=== PATIENT | male | born 1995 | race Hispanic/Latino ===

== ENCOUNTER 2025-09-10 15:33 | Observation (INO) | payer BC ==
[~2025-09-10] VITALS: Ht 167.6 cm; Wt 106.1 kg
--- NOTE | 2025-09-10 16:03 | ERN ---
General Chief Complaint: Abdominal Pain Stated Complaint: RLQ PAIN Time Seen by MD: 15:40 History of Present Illness Initial Comments Patient is a 30-year-old male presenting with right lower quadrant abdominal pain that began yesterday evening. Pain was initially 8/10, now 7/10, described as sharp and localized to right lower quadrant. He reports associated nausea but no vomiting, diarrhea or urinary symptoms. No prior similar episodes. Allergies: Coded Allergies: No Known Drug Allergies (Unverified Allergy, Unknown, 09/10/25) Past Medical History Past Medical History: Diabetes-Type II Past Surgical History: None ROS Dictation REVIEW OF SYSTEMS CONSTITUTIONAL: Reports mild fever: No unintentional weight loss reported. NEUROLOGICAL: Denies headache, vertigo/spinning sensation, gait abnormalities, or tremors. ENT: No hearing loss, otalgia, otorrhea, rhinitis, rhinorrhea, hoarseness, or sore throat. CARDIOVASCULAR: Denies any exertional angina, dyspnea on exertion, orthopnea, paroxysmal nocturnal dyspnea, palpitations, life-threatening arrhythmias, claudication. PULMONARY: Denies chest pain, Denies any shortness of breath, GASTROINTESTINAL: Positive for right lower quadrant abdominal pain and nausea: Denies vomiting, diarrhea, constipation, melena or hematochezia. GENITOURINARY: Denies frequency, urgency, nocturia, hematuria or incontinence. Physical Exam Physical Exam Dictation PHYSICAL EXAM GENERAL APPEARANCE: The patient is awake, alert, and oriented, in no acute cardiopulmonary distress. NEUROLOGICAL: Alert and oriented x3, moving all extremities spontaneously. No focal deficit. HEENT: Face is symmetric. Pupils are equal and reactive. Extraocular movements are intact. CHEST: Normal chest expansion. LUNGS: Absence of any rales, rhonchi or any wheezing. CARDIOVASCULAR: Regular. S1 and S2 normal. No appreciable rubs, murmurs or gallops. ABDOMEN: Flat, nondistended, mild tenderness in RLQ. Rebound tenderness positive. Positive Psoas sign. Bowel sounds present. EXTREMITIES: No cyanosis, clubbing or edema. Results Laboratory and Microbiology Lab and Micro Result Laboratory Tests Test 09/10/25 16:04 White Blood Count 15.5 K/uL (4.8-10.8) H Red Blood Count 6.01 MIL/uL (4.50-6.20) Hemoglobin 17.8 g/dL (14.0-18.0) Hematocrit 51.7 % (42-54) Mean Corpuscular Volume 86.0 fL (79-99) Mean Corpuscular Hemoglobin 29.6 pg (27.0-33.0) Mean Corpuscular Hemoglobin Concent 34.4 g/dL (32.0-36.0) Red Cell Distribution Width 12.4 % (11.0-15.5) Platelet Count 255 K/uL (130-400) Mean Platelet Volume 10.7 fL (7.5-10.5) H Nucleated Red Blood Cells 0.0 % (0.0-0.19) Sodium Level 133 mmol/L (136-145) L Potassium Level 3.5 mmol/L (3.5-5.1) Chloride Level 97 mmol/L (101-111) L Carbon Dioxide Level 27 mmol/L (21-32) Blood Urea Nitrogen 14 mg/dL (7-18) Creatinine 0.8 mg/dL (0.5-1.3) Glomerular Filtration Rate Calc 121 mL/min (>90) Random Glucose 296 mg/dL (70-105) H Total Calcium 8.8 mg/dL (8.5-10.1) Labs Reviewed?: Yes EKG/XRAY/US/CT/MRI CT Scan Comment [address] [id number] [place] [address] IMAGING REPORT Signed PATIENT: JEAN-PAUL ROJAS MR#: [id number] : 1995 SEX: M AGE: 30 LOCATION: ED ORDER STATUS: REG ER REPORT#: [id number] SERVICE [id number] REASON: R/O APPENDICITIS ORDERING PHYSICIAN: ELLY GARCIA MD PROCEDURE: ABD PEL WO - CT ABDOMEN/PELVIS W/O CONTRAST EXAM: CT Abdomen and Pelvis Without IV contrast CLINICAL HISTORY: R/O APPENDICITIS TECHNIQUE: Axial computed tomography images of the abdomen and pelvis without intravenous contrast. CONTRAST: No IV contrast. COMPARISON: None provided. FINDINGS: LUNG BASES: The lung bases appear clear. No pleural effusions are seen. LIVER: Fatty liver. GALLBLADDER AND BILE DUCTS: The gallbladder appears within normal limits. No radioopaque gallstones are seen. No biliary ductal dilatation is evident. PANCREAS: Unremarkable. SPLEEN: Unremarkable. ADRENAL GLANDS: Unremarkable. KIDNEYS, URETERS, AND BLADDER: The kidneys appear within normal limits. There is no hydronephrosis or hydroureter. No urinary calculi are seen. STOMACH AND BOWEL: Unremarkable appearance of the stomach and bowel. No evidence of bowel obstruction. No evidence suggesting enteritis or colitis. APPENDIX: Appendix measures 7 mm in diameter with surrounding inflammatory changes. PERITONEUM: No free fluid. No free air. LYMPH NODES: No lymphadenopathy is evident. REPRODUCTIVE: Unremarkable as visualized. VASCULATURE: No evidence of abdominal aortic aneurysm. BONES: No aggressive appearing osseous lesion. No acute osseous pathology evident. MISCELLANEOUS: Small fat-containing bilateral inguinal hernias. IMPRESSION: 1. Acute appendicitis. 2. Fatty liver. 3. Small bilateral inguinal hernias. /[place] DICTATED BY: CARL BETHEA MD DATE: 09/10/251820 ELECTRONICALLY SIGNED BY: CARL BETHEA MD DATE: 09/10/251820 [facility] This is a 30-year-old male presenting with acute right lower quadrant abdominal pain since yesterday evening, associated with nausea, mild fever temperature 99.1 and tachycardia heart rate 190. Laboratory evaluation showed WBC 15.5 Leukocytosis. CMP within normal limits with high blood glucose level of 296. Imaging: CT abdomen pelvis demonstrated, Acute appendicitis and small bilateral inguinal hernias. Appendix measures 7 mm in diameter with surrounding inflammatory changes. Vitals: Mild tachycardia: Otherwise stable hemodynamics Findings are consistent with acute appendicitis. Differential diagnosis such as mesenteric adenitis, gastroenteritis and renal colic are less likely given CT confirmation and localize signs like psoas sign positive and has rebound tenderness with leukocytosis. Patient was managed with IV fluids and Zosyn IV. General surgery (Dr Drake) was consulted and will be admitted as per the recommendation. Instructions: * Patient kept NPO * IV fuids and IV antibiotics has been initiated * Patient counseled on findings, need for surgical evaluation * IV analgesics and antiemetics as required Disposition: Admit to General surgery for further management. Condition is stable. Patient will be admitted under the care of hospitalist group report given. ED Course Orders Procedure Category Date Status Time Cbc Without LAB 09/10/25 Complete Differential 15:50 Basic Metabolic Panel LAB 09/10/25 Complete 15:50 Urinalysis Profile LAB 09/10/25 Logged 15:50 Ct Abdomen/Pelvis W/O CT 09/10/25 Resulted Contrast 16:37 Zosyn 3.375gm+Ns 50ml PHA 09/10/25 In Process (Zosyn 3.375gm+Ns 18:00 General Surgery CONPHYSVC 09/10/25 Transmitted Consult 17:33 0.9%Nacl 1000ml (Ns PHA 09/10/25 Logged 1000ml) 18:30 Current Medications Medications (Trade) Dose Ordered Sig/Nyasia Route PRN Reason Start Time Stop Time Status Last Admin Dose Admin Piperacillin Sod/ Tazobactam Sod (Zosyn 3.375gm+NS 50ml) 3.375 gm ONCE IV 09/10/25 18:00 09/20/25 17:59 09/10/25 18:04 Sodium Chloride 1,000 ml @ 0 mls/hr ONCE ONCE IV 09/10/25 18:30 09/10/25 18:31 UNV Vital Signs Date Time Temp Pulse Resp B/P (MAP) Pulse Ox O2 Delivery O2 Flow Rate FiO2 09/10/25 18:20 99.1 117 19 139/87 99 Room Air* 0 21 09/10/25 16:36 98.1 124 19 121/85 96 Room Air* 0 21 09/10/25 15:36 99.1 130 20 142/78 98 Room Air DX & DISP Disposition: Inpatient Decision to Admit Time: 18:35 Departure Impression: Primary Impression: Acute appendicitis Condition: Stable Additional Instructions: Instructions: Patient kept NPO IV fuids and IV antibiotics has been initiated Patient counseled on findings, need for surgical evaluation IV analgesics and antiemetics as required ELLY GARCIA MD Sep 10, 2025 16:03 NERIS VELIZ MD Sep 10, 2025 18:14
[2025-09-10 16:14] LABS: NUCLEATED RED BLOOD CELLS 0.0 % (0.0-0.19); PLATELET COUNT (AUTO) 255.0 K/uL (130-400); RED BLOOD CELL COUNT(AUTO) 6.01 MIL/uL (4.50-6.20); RED CELL DISTRIBUTION WIDTH 12.4 % (11.0-15.5); WHITE BLOOD COUNT (AUTO) 15.5 K/uL (4.8-10.8)
[2025-09-10 16:23] LABS: CREATININE 0.8 mg/dL (0.5-1.3); GLOMERULAR FILTR. RATE CALC 121.0 mL/min (>90); GLUCOSE,RANDOM 296.0 mg/dL (70-105); SODIUM SERUM 133.0 mmol/L (136-145); UREA NITROGEN, BLOOD 14.0 mg/dL (7-18)
--- NOTE | 2025-09-10 17:22 | HMCIMG ---
EXAM: CT Abdomen and Pelvis Without IV contrast CLINICAL HISTORY: R/O APPENDICITIS TECHNIQUE: Axial computed tomography images of the abdomen and pelvis without intravenous contrast. CONTRAST: No IV contrast. COMPARISON: None provided. FINDINGS: LUNG BASES: The lung bases appear clear. No pleural effusions are seen. LIVER: Fatty liver. GALLBLADDER AND BILE DUCTS: The gallbladder appears within normal limits. No radioopaque gallstones are seen. No biliary ductal dilatation is evident. PANCREAS: Unremarkable. SPLEEN: Unremarkable. ADRENAL GLANDS: Unremarkable. KIDNEYS, URETERS, AND BLADDER: The kidneys appear within normal limits. There is no hydronephrosis or hydroureter. No urinary calculi are seen. STOMACH AND BOWEL: Unremarkable appearance of the stomach and bowel. No evidence of bowel obstruction. No evidence suggesting enteritis or colitis. APPENDIX: Appendix measures 7 mm in diameter with surrounding inflammatory changes. PERITONEUM: No free fluid. No free air. LYMPH NODES: No lymphadenopathy is evident. REPRODUCTIVE: Unremarkable as visualized. VASCULATURE: No evidence of abdominal aortic aneurysm. BONES: No aggressive appearing osseous lesion. No acute osseous pathology evident. MISCELLANEOUS: Small fat-containing bilateral inguinal hernias. IMPRESSION: 1. Acute appendicitis. 2. Fatty liver. 3. Small bilateral inguinal hernias. /[place]
[2025-09-10] MEDS: ZOSYN 3.375GM +NS 50ML IV SCH (18:04)
[2025-09-10] MEDS: 0.9%NACL 1000ML 1,000 ML IV SCH (18:45)
[2025-09-10] MEDS ORDERED: 0.9%NACL 1000ML 1,000 ML IV SCH (19:00)
[2025-09-10] MEDS ORDERED: PoTASSium chloRIDE 20MEQ ER 20 MEQ ERTAB PO PRN (19:00)
[2025-09-10] MEDS ORDERED: GLUCAGON 1MG KIT 1 MG ML IM PRN (19:00)
[2025-09-10] MEDS ORDERED: MAGNESIUM 2GM PREMIX 50ML 50 ML IV PRN (19:00)
[2025-09-10] MEDS ORDERED: DEXTROSE 50%-WATER 50 ML DISP.SYRIN IV PRN (19:00)
[2025-09-10] MEDS ORDERED: PoTASSium chl 10% ELIXIR 20MEQ 20 MEQ/15 ML UDCUP PO PRN (19:00)
--- NOTE | 2025-09-10 19:07 | HP ---
[facility] HISTORY AND PHYSICAL Date of Service: Sep 10, 2025 Time of Service: 19:07 PCP: Placido Rojas HISTORY OF PRESENT ILLNESS: This is a 30-year-old male who states he is newly diagnosed with Diabetes and has been on Metformin who presents to the ED for complaints of right lower quadrant pain .Patient reports pain inially started lastnight around 11 :00 pm and initially it was all over his abdomen and today it started to localized around right lower quadrant area associated wih nausea but no vomiting.Patient states this is the first time he has this symptoms. Seen and examined patient in the Er awake,alert and appears uncomfortable 7/10 pain level.Patient denies chest pain,palpitation ,diarrhea and shortness of breath. Latest vital signs temperature 99.1, heart rate 117, blood pressure 139/87 saturation 99% on room air. Labs: WBC 15, hemoglobin 17, hematocrit 51 platelet count 255. Sodium 133, potassium 3.5, chloride 97, random glucose 296 the rest of the chemistries normal. CT abdomen and pelvis without contrast result revealed acute appendicitis. Fatty liver, small bilateral inguinal hernia. While in the ER patient received 1 L NS bolus and Zosyn IV. As per ER MD , airport operations specialist surgeon was notified and consulted .We will admit patient for further medical management REVIEW OF SYSTEMS CONSTITUTIONAL: Denies fevers, chills, or night sweats. No unintentional weight loss reported. NEUROLOGICAL: Denies headache, amaurosis fugax, motor weakness, sensory deficit, vertigo/spinning sensation, gait abnormalities, or tremors. ENT: No hearing loss, otalgia, otorrhea, rhinitis, rhinorrhea, hoarseness, or sore throat. CARDIOVASCULAR: Denies any exertional angina, dyspnea on exertion, orthopnea, paroxysmal nocturnal dyspnea, palpitations, life-threatening arrhythmias, cla udication. PULMONARY: Denies any shortness of breath, cough, phlegm/sputum, hemoptysis, pleuritic chest pain. SLEEP: Denies morning headaches, daytime somnolence or napping. Denies difficulty falling asleep, staying asleep, waking from sleep. Denies knowledge of snoring. GASTROINTESTINAL: Complain of abdominal pain and nausea Denies any type of dysphagia to either liquids or solids. Denies vomiting, pyrosis, early satiety, diarrhea, constipation, or changes in stool consistency or caliber. Denies coffee-ground emesis, hematemesis, hematochezia, or melanotic stools. GENITOURINARY: Denies frequency, urgency, nocturia, hematuria or incontinence (Storage/Irritative symptoms.) Low urinary stream, straining to void, urinary intermittency or hesitancy, splitting of the voiding stream, terminal dribbling. ENDOCRINOLOGIC: Denies polyuria, polydipsia, polyphagia or heat/cold into lerances. HEMATOLOGIC: Denies thrombophilia/previous clots, or coagulopathy/bleeding disorders. ONCOLOGIC: Denies personal history of malignancy. DERMATOLOGIC: Denies rashes or pruritus. PSYCHIATRIC: Denies any suicidal or homicidal ideation. Denies hallucinations. PAST MEDICAL HISTORY: [Diabetes ] PAST SURGICAL HISTORY: [ Patient denies] PAST SOCIAL HISTORY: [ Lives with father. Patient denies alcohol tobacco and recreational drug use ] FAMILY HISTORY: [ Noncontributory ] Coded Allergies: No Known Drug Allergies (Unverified Allergy, Unknown, 09/10/25) PHYSICAL EXAM GENERAL APPEARANCE: The patient is awake, alert, and oriented, in no acute cardiopulmonary distress. NEUROLOGICAL: Cranial nerves II-XII grossly intact. Motor is 5/5 in bilateral upper and lower extremities proximal to distal. No sensory deficits. HEENT: Face is symmetric. Pupils are equal and reactive. Extraocular movements are intact. NECK: Supple. No JVD. No thyromegaly. No submental, submandibular, pre- /postauricular, occipital or supraclavicular lymphadenopathy. CHEST: Normal chest expansion. No Telemetry. LUNGS: Absence of any rales, rhonchi or any wheezing. CARDIOVASCULAR: Regular. S1 and S2 normal. No appreciable rubs, murmurs or gallops. ABDOMEN: Tenderness around right lower quadrant area on light palpation Soft and nondistended. There is no voluntary guarding, or rigidity. : Deferred. No Mei. EXTREMITIES: Non-edematous and not cyanotic. No clubbing. Good capillary refill. SKIN: No skin breakdown. Vital Sign (Last 24 Hours) 09/10/25 18:20 Temp 99.1 Pulse 117 Resp 19 B/P (MAP) 139/87 Pulse Ox 99 O2 Delivery Room Air* O2 Flow Rate 0 FiO2 21 LABS: Laboratory: Test 09/10/25 16:04 Range/Units White Blood Count 15.5 H 4.8-10.8 K/uL Red Blood Count 6.01 4.50-6.20 MIL/uL Hemoglobin 17.8 14.0-18.0 g/dL Hematocrit 51.7 42-54 % Mean Corpuscular Volume 86.0 79-99 fL Mean Corpuscular Hemoglobin 29.6 27.0-33.0 pg Mean Corpuscular Hemoglobin Concent 34.4 32.0-36.0 g/dL Red Cell Distribution Width 12.4 11.0-15.5 % Platelet Count 255 130-400 K/uL Mean Platelet Volume 10.7 H 7.5-10.5 fL Nucleated Red Blood Cells 0.0 0.0-0.19 % Sodium Level 133 L 136-145 mmol/L Potassium Level 3.5 3.5-5.1 mmol/L Chloride Level 97 L 101-111 mmol/L Carbon Dioxide Level 27 21-32 mmol/L Blood Urea Nitrogen 14 7-18 mg/dL Creatinine 0.8 0.5-1.3 mg/dL Glomerular Filtration Rate Calc 121 >90 mL/min Random Glucose 296 H 70-105 mg/dL Total Calcium 8.8 8.5-10.1 mg/dL Current Medications Medications (Trade) Dose Ordered Sig/Nyasia Route PRN Reason Start Time Stop Time Status Last Admin Dose Admin Acetaminophen (TYLenol 325MG TAB) 650 mg Q4H PRN PO MILD PAIN (1-3) 09/10/25 19:00 10/10/25 18:59 UNV Acetaminophen (TYLenol 325MG TAB) 650 mg Q6H PRN PO TEMPERATURE GREATER THAN 101.5 09/10/25 19:00 10/10/25 18:59 UNV Dextrose (D50w) 50 ml AD PRN IV HYPOGLYCEMIA PROTOCOL 09/10/25 19:00 10/10/25 18:59 UNV Famotidine (Pepcid 20mg Vial) 20 mg DAILY IV 09/11/25 09:00 10/11/25 08:59 UNV Glucagon (Glucagon 1mg Kit) 1 mg AD PRN IM HYPOGLYCEMIA PROTOCOL 09/10/25 19:00 10/10/25 18:59 UNV Insulin Human Regular (humuLIN R 100 UNIT/ML 3ML) INSULIN SLIDING SCAL... ACHS SQ 09/10/25 21:00 10/10/25 20:59 UNV Magnesium Sulfate 50 ml @ 0 mls/hr PROTOCOL PRN IV OTHER [SEE ORDER COMMENTS] 09/10/25 19:00 10/10/25 18:59 UNV Ondansetron HCl (zoFRAN 4MG INJ) 4 mg Q6H PRN IV NAUSEA/VOMITING 09/10/25 19:00 10/10/25 18:59 UNV Piperacillin Sod/ Tazobactam Sod 50 ml @ 12.5 mls/hr ZOSY8 IV 09/10/25 21:00 09/20/25 20:59 UNV Piperacillin Sod/ Tazobactam Sod (Zosyn 3.375gm+NS 50ml) 3.375 gm ONCE IV 09/10/25 18:00 09/20/25 17:59 09/10/25 18:04 3.375 GM Potassium Chloride 100 ml @ 50 mls/hr AD PRN IV POTASSIUM PROTOCOL 09/10/25 19:00 10/10/25 18:59 UNV Potassium Chloride 100 ml @ 100 mls/hr AD PRN IV POTASSIUM PROTOCOL 09/10/25 19:00 10/10/25 18:59 UNV Potassium Chloride (K-Dur/Klor-Con 20meq) 20 meq AD PRN PO POTASSIUM PROTOCOL 09/10/25 19:00 10/10/25 18:59 UNV Potassium Chloride (KCl 10% Elixir 20meq/15ml) 20 meq AD PRN PO POTASSIUM PROTOCOL 09/10/25 19:00 10/10/25 18:59 UNV Sodium Chloride 1,000 ml @ 0 mls/hr AD IV 09/10/25 19:00 10/10/25 18:59 UNV Sodium Chloride 1,000 ml @ 0 mls/hr ONCE IV 09/10/25 18:30 09/10/25 22:30 09/10/25 18:45 999 MLS/HR DIAGNOSTICS / RADIOLOGY: [ ] ASSESSMENT: Acute appendicitis POA Acute leukocytosis POA Hyponatremia POA Uncontrolled diabetes POA Morbid obesity POA PLAN: We will admit patient in medical surgical We will keep nothing by mouth diet We will continue Zosyn IV Q 8 hours for empiric coverage We will start LR @ 100 ml / hr x2 bags and re evaluate We will start on famotidine 20 mg IV daily for GI prophylaxis We will replace electrolytes as needed per protocol We will start on insulin sliding scale AC & HS with hypoglycemia protocol We will add prn medication for fever,pain,cough , nausea and vomiting General surgery consulted pending to evaluate the patient We will request labs in am Further orders to follow depending on above results Case discussed with attending physician and came up with above treatment and plan of care. ADVANCED CARE PLANNING 1. Which of the following were discussed? Hospice Care - No Therapeutic options - Yes Advance Directives - No Other discussions - 2. Discussed with who? Patient 3. Voluntary nature of this service was explained to the patient? Yes 4. Amount of time spent - __20 min 5. Reviewed by Physician? (if this service was performed by NPP) Yes Patient seen and examined by me. Agree with note by [employer] LINESMAN SEE ADDITIONAL ORDERS PER CHART DISCUSSED WITH NURSING STAFF ROBEL CALVILLOP Sep 10, 2025 19:07
[2025-09-10] MEDS: LACTATED RINGERS 1000ML 1,000 ML IV SCH (19:59)
[2025-09-10] MEDS: ZOSYN 3.375GM+NS 50ML 50 ML IV SCH (20:00)
--- NOTE | 2025-09-10 20:45 | NUR ---
OR TEAM ROUNDS TO PT BEDSIDE
[2025-09-10 21:40] VITALS: BP 130/94; PULSE 115; RESP 18; TEMP 98.1
[2025-09-10 21:45] VITALS: O2SAT 97
[2025-09-11] VITALS (15 sets, daily range): BP systolic 117–158; BP diastolic 74–91; PULSE 100–111; RESP 14–16; TEMP 97–98.3; O2SAT 99
--- NOTE | 2025-09-11 00:42 | NUR ---
OR TEAM NURSES AT BEDSIDE. ALL QUESTIONS ANSWERED. VERBALIZED UNDERSTANDING
--- NOTE | 2025-09-11 00:43 | NUR ---
PATIENT TAKEN TO OR VIA BED. PATIENT AAOX4.
[2025-09-11] MEDS ORDERED: LIDOCAINE PF 100MG/5ML (2%) SYRINGE 5ML ONE (00:54)
[2025-09-11] MEDS ORDERED: SUCCINYLCHOLINE CHLORIDE 20 MG/ML 10 ML VIAL ONE (00:55)
[2025-09-11] MEDS ORDERED: MIDAZOLAM HCL 1 MG/ML 2ML VIAL ONE (00:56)
--- NOTE | 2025-09-11 00:59 | CONS ---
GENERAL SURGERY CONSULTATION NOTE DATE OF CONSULTATION: Sep 11, 2025 TIME OF CONSULTATION: 00:52 CONSULTING SERVICE: Bigg Licea MD REQUESTING PHYSICAIN: [ ] REASON FOR CONSULTATION: [ ] HISTORY OF PRESENT ILLNESS: 30-year-old male started with the abdominal pain about24 hours ago progressively got worse localized right lower quadrant and had nausea. No vomiting. Came into the ER because the pain was getting worse. Found to have acute appendicitis. PAST MEDICAL HISTORY: Diabetes just diagnosed, obesity PAST SURGICAL HISTORY: Done FAMILY HISTORY: [ ] SOCIAL HISTORY: Denies any tobacco alcohol or any illicit drug use Current Medications Medications (Trade) Dose Ordered Sig/Nyasia Route Start Time Stop Time Status Last Admin Dose Admin Famotidine (Pepcid 20mg Vial) 20 mg DAILY IV 09/11/25 09:00 10/11/25 08:59 Insulin Human Regular (humuLIN R 100 UNIT/ML 3ML) INSULIN SLIDING SCAL... ACHS SQ 09/10/25 21:00 10/10/25 20:59 Lactated Ringer's 1,000 ml @ 100 mls/hr Q10H IV 09/10/25 19:30 10/10/25 19:29 09/10/25 19:59 100 MLS/HR Piperacillin Sod/ Tazobactam Sod 50 ml @ 12.5 mls/hr ZOSY8 IV 09/10/25 21:00 09/20/25 20:59 Piperacillin Sod/ Tazobactam Sod (Zosyn 3.375gm+NS 50ml) 3.375 gm ONCE IV 09/10/25 18:00 09/20/25 17:59 09/10/25 18:04 3.375 GM Sodium Chloride 1,000 ml @ 0 mls/hr AD IV 09/10/25 19:00 10/10/25 18:59 Sodium Chloride 1,000 ml @ 0 mls/hr ONCE IV 09/10/25 18:30 09/10/25 22:30 DC 09/10/25 18:45 999 MLS/HR Allergies: Coded Allergies: No Known Drug Allergies (Unverified Allergy, Unknown, 09/10/25) REVIEW OF SYSTEMS: RESP: [No cough, chest pain or SOB.] CVS: [No palpitaions.] GI: [abdominal pain with nausea and vomiting, no diarrhea or constipation.] LIN: [No dysuria or hematuria.] All other systems are reviewed and essentially negative pertinent positives in HPI. PHYSICAL EXAMINATION: GENERAL: [Patient is lying comfortably in bed, not in any obvious distress. HEAD: [Normal with no signs of head trauma. EYES: [Not pale not jaundiced afebrile to touch. NECK: Trachea midline LUNGS: No respiratory distress HEART: [Regular rate and rhythm. ABD: [Bowel sounds present,soft, right lower quadrant tenderness EXT: [ Warm soft, non tender. SKIN: [ No rashes or lesions. NEURO: [ Awake Alert and oriented x3. Vital Signs (last 8hr) Date Time Temp Pulse Resp B/P (MAP) Pulse Ox O2 Delivery O2 Flow Rate FiO2 09/11/25 00:35 98.2 111 16 139/74 98 Room Air 0.0 09/10/25 21:45 97 Room Air* 0 21 09/10/25 21:40 98.1 115 18 130/94 96 Room Air 0.0 09/10/25 21:20 112 18 137/89 97 Room Air* 0 21 09/10/25 19:24 110 18 134/88 96 Room Air* 0 21 09/10/25 18:20 99.1 117 19 139/87 99 Room Air* 0 21 LABORATORY: [ ] Hematology Labs: Test 09/10/25 16:04 Range/Units White Blood Count 15.5 H 4.8-10.8 K/uL Red Blood Count 6.01 4.50-6.20 MIL/uL Hemoglobin 17.8 14.0-18.0 g/dL Hematocrit 51.7 42-54 % Mean Corpuscular Volume 86.0 79-99 fL Mean Corpuscular Hemoglobin 29.6 27.0-33.0 pg Mean Corpuscular Hemoglobin Concent 34.4 32.0-36.0 g/dL Red Cell Distribution Width 12.4 11.0-15.5 % Platelet Count 255 130-400 K/uL Mean Platelet Volume 10.7 H 7.5-10.5 fL Nucleated Red Blood Cells 0.0 0.0-0.19 % Chemistry Labs: Test 09/10/25 21:07 09/10/25 16:04 Range/Units Whole Blood Glucose 248 H 70-110 MG/DL Sodium Level 133 L 136-145 mmol/L Potassium Level 3.5 3.5-5.1 mmol/L Chloride Level 97 L 101-111 mmol/L Carbon Dioxide Level 27 21-32 mmol/L Blood Urea Nitrogen 14 7-18 mg/dL Creatinine 0.8 0.5-1.3 mg/dL Glomerular Filtration Rate Calc 121 >90 mL/min Random Glucose 296 H 70-105 mg/dL Total Calcium 8.8 8.5-10.1 mg/dL DIAGNOSTICS / RADIOLOGY: [Copy/Paste Echos/Imaging Report here] ASSESSMENT: Acute appendicitis PLAN: NPO/IVF/IV ANTIOBIOTICS Schedule for OR We talked about various treatment options including but not limited to surgery. We talked about risks and benefits of surgery, patient verbalized understanding has agreed to proceed laparoscopic appendectomy possible open. MARNIE LATIF MD Sep 11, 2025 00:59
--- NOTE | 2025-09-11 01:53 | OP ---
Operative Note: DATE OF PROCEDURE: 09/11/25 PROCEDURE:Laparoscopic appendectomy. ANESTHESIA: General endotracheal. PREOPERATIVE DIAGNOSIS: Appendicitis. POSTOPERATIVE DIAGNOSIS: Acute appendicitis without perforation. DEVICES LEFT IN PLACE: None. FLUID AND BLOOD PRODUCTS: Per anesthesia report. BLOOD LOSS: Minimal. SPECIMENS REMOVED: Appendix. COMPLICATIONS: None immediate. SURGEON: Marnie Drake MD. DESCRIPTION OF PROCEDURE: The patient was brought to the operating room and placed on the operating table in supine position where general endotracheal anesthesia was achieved. We then proceeded to prep and drape the abdomen in sterile fashion, created a longitudinal incision at the umbilicus, and dissected down through the skin, subcutaneous tissue, and fascia to expose the fascia and incise the fascia at the midline using a #15 blade and entered the abdominal cavity. We introduced a trocar, obtained pneumoperitoneum, and then under direct visualization, we proceeded to place two 5-mm trocars, one in the suprapubic position and the other in the left lower quadrant. We then proceeded to evaluate the pelvis. We evaluated the appendix and it has changes of acute appendicitis. We therefore proceeded to release the appendix from all its adhesions using blunt and sharp dissection with a LigaSure and then proceeded to create a window at the base of the appendix with a [place] dissector and divided the mesoappendix with the LigaSure device. The appendix was in a retrocecal position. Once the base of the appendix was free, we then proceeded to divide the appendix with the [place] vascular load stapler. Placed the appendix into the Endo Catch bag. We inspected the pelvis again and we did not find any signs of an abscess or any other signs of infection. Then, under direct visualization, we proceeded to remove our trocars and there was no bleeding from the abdominal wall. We removed the appendix from the abdomen using the EndoCatch bag and relieved the pneumoperitoneum. We closed the fascia at the umbilicus using a 0-Vicryl stitch in the [id number] fashion and then the skin was closed using a skin stapler. The patient tolerated the procedure well. I was present as well during the entire procedure. All counts were correct x 2 at the end of the procedure. MARNIE DRAKE MD Sep 11, 2025 01:53
[2025-09-11] MEDS ORDERED: PROMETHAZINE HCL 25 MG/ML 1ML AMPULE IM PRN (02:30)
[2025-09-11 04:50] LABS: IMMATURE GRANULOCYTE ABSOLUTE 0.09 K/uL (0-1); NUCLEATED RED BLOOD CELLS 0.0 % (0.0-0.19); PLATELET COUNT (AUTO) 199 K/uL (130-400); RED BLOOD CELL COUNT(AUTO) 5.45 MIL/uL (4.50-6.20); RED CELL DISTRIBUTION WIDTH 12.6 % (11.0-15.5); WHITE BLOOD COUNT (AUTO) 15.4 K/uL (4.8-10.8)
[2025-09-11 05:06] LABS: ASPARTATE AMINOTRANSFERASE 20.0 U/L (10-37); CREATININE 0.8 mg/dL (0.5-1.3); GLOMERULAR FILTR. RATE CALC 121.0 mL/min (>90); GLUCOSE,RANDOM 283.0 mg/dL (70-105); SODIUM SERUM 139.0 mmol/L (136-145); TOTAL PROTEIN, SERUM 7.2 g/dL (6.0-8.3); UREA NITROGEN, BLOOD 17.0 mg/dL (7-18)
[2025-09-11] MEDS: SIMETHICONE 80 MG TAB.CHEW PO SCH (09:38)
[2025-09-11] MEDS: FAMOTIDINE 20MG VIAL IV SCH (09:38)
--- NOTE | 2025-09-11 10:19 | PN ---
POSTOP DAY ONE AFTER LAPAROSCOPIC APPENDECTOMY. PASSING GAS AND HAD A BOWEL MOVEMENT ALREADY. Tolerating his diet. No nausea no vomiting. Pain controlled Incisions are clean dry and intact Assessment and plan Okay to discharge patient after his 2:00 a.m. dose of Zosyn. Discharge home on oral pain medication follow up in the office in 10 days. No lifting anything over 15 or 20 lb for a month. Vitals/Labs Vital Signs Date Time Temp Pulse Resp B/P (MAP) Pulse Ox O2 Delivery O2 Flow Rate FiO2 09/11/25 04:30 98.1 111 16 158/82 96 Nasal Cannula 2.0 09/10/25 21:45 21 Laboratory Tests 09/10/25 16:04 09/11/25 04:20 Medications Current Medications Piperacillin Sod/ Tazobactam Sod 3.375 gm ONCE IV Last administered on 09/10/25at 18:04; Start 09/10/25 at 18:00; Stop 09/11/25 at 06:50; Status DC Sodium Chloride 1,000 ml @ 0 mls/hr ONCE IV Last administered on 09/10/25at 18:45; Start 09/10/25 at 18:30; Stop 09/10/25 at 22:30; Status DC Acetaminophen 650 mg Q6H PRN PO; Start 09/10/25 at 19:00; Stop 10/10/25 at 18:59 Acetaminophen 650 mg Q4H PRN PO; Start 09/10/25 at 19:00; Stop 10/10/25 at 18:59 Ondansetron HCl 4 mg Q6H PRN IV; Start 09/10/25 at 19:00; Stop 10/10/25 at 18:59 Piperacillin Sod/ Tazobactam Sod 50 ml @ 12.5 mls/hr ZOSY8 IV Last administered on 09/11/25at 05:20; Start 09/10/25 at 21:00; Stop 09/20/25 at 20:59 Sodium Chloride 1,000 ml @ 0 mls/hr AD IV; Start 09/10/25 at 19:00; Stop 09/11/25 at 06:49; Status DC Famotidine 20 mg DAILY IV Last administered on 09/11/25at 09:38; Start 09/11/25 at 09:00; Stop 10/11/25 at 08:59 Insulin Human Regular INSULIN SLIDING SCAL... ACHS SQ Last administered on 09/11/25at 09:37; Start 09/10/25 at 21:00; Stop 10/10/25 at 20:59 Dextrose 50 ml AD PRN IV; Start 09/10/25 at 19:00; Stop 10/10/25 at 18:59 Glucagon 1 mg AD PRN IM; Start 09/10/25 at 19:00; Stop 10/10/25 at 18:59 Magnesium Sulfate 50 ml @ 0 mls/hr PROTOCOL PRN IV; Start 09/10/25 at 19:00; Stop 10/10/25 at 18:59 Potassium Chloride 100 ml @ 50 mls/hr AD PRN IV; Start 09/10/25 at 19:00; Stop 10/10/25 at 18:59 Potassium Chloride 100 ml @ 100 mls/hr AD PRN IV; Start 09/10/25 at 19:00; Stop 09/11/25 at 06:49; Status DC Potassium Chloride 20 meq AD PRN PO; Start 09/10/25 at 19:00; Stop 10/10/25 at 18:59 Potassium Chloride 20 meq AD PRN PO; Start 09/10/25 at 19:00; Stop 10/10/25 at 18:59 Lactated Ringer's 1,000 ml @ 100 mls/hr Q10H IV Last administered on 09/10/25at 19:59; Start 09/10/25 at 19:30; Stop 10/10/25 at 19:29 Bupivacaine HCl 5 mg STK-MED ONCE .ROUTE; Start 09/10/25 at 20:23; Stop 09/10/25 at 20:23; Status DC Lidocaine HCl 100 mg STK-MED ONCE .ROUTE; Start 09/11/25 at 00:54; Stop 09/11/25 at 00:55; Status DC Ondansetron HCl 4 mg STK-MED ONCE .ROUTE; Start 09/11/25 at 00:54; Stop 09/11/25 at 00:55; Status DC Propofol 200 mg STK-MED ONCE IV; Start 09/11/25 at 00:54; Stop 09/11/25 at 00:55; Status DC Succinylcholine Chloride 200 mg STK-MED ONCE .ROUTE; Start 09/11/25 at 00:55; Stop 09/11/25 at 00:55; Status DC Rocuronium [place] 50 mg STK-MED ONCE .ROUTE; Start 09/11/25 at 00:55; Stop 09/11/25 at 00:55; Status DC Midazolam HCl 2 mg STK-MED ONCE .ROUTE; Start 09/11/25 at 00:56; Stop 09/11/25 at 00:57; Status DC Fentanyl Citrate 100 mcg STK-MED ONCE .ROUTE; Start 09/11/25 at 00:56; Stop 09/11/25 at 00:57; Status DC Bupivacaine HCl 150 mg STK-MED ONCE INJ Last administered on 09/11/25at 01:25; Start 09/11/25 at 01:25; Stop 09/11/25 at 01:40; Status DC Ketorolac Tromethamine 30 mg STK-MED ONCE .ROUTE; Start 09/11/25 at 01:46; Stop 09/11/25 at 01:46; Status DC Cefazolin Sodium 1 gm STK-MED ONCE .ROUTE; Start 09/11/25 at 01:58; Stop 09/11/25 at 01:59; Status DC Fentanyl Citrate 100 mcg STK-MED ONCE .ROUTE Last administered on 09/11/25at 02:11; Start 09/11/25 at 02:05; Stop 09/11/25 at 02:05; Status DC Ondansetron HCl 4 mg AD PRN IVP; Start 09/11/25 at 02:30; Stop 09/11/25 at 02:50; Status DC Metoclopramide HCl 10 mg AD PRN IVP; Start 09/11/25 at 02:30; Stop 09/11/25 at 02:51; Status DC Promethazine HCl 25 mg AD PRN IM; Start 09/11/25 at 02:30; Stop 09/11/25 at 02:51; Status DC Ketorolac Tromethamine 30 mg AD PRN IV; Start 09/11/25 at 02:30; Stop 09/11/25 at 02:51; Status DC Morphine Sulfate 2 mg AD PRN IVP; Start 09/11/25 at 02:30; Stop 09/11/25 at 02:51; Status DC Fentanyl Citrate 25 mcg Q5MIN PRN IVP; Start 09/11/25 at 02:30; Stop 09/11/25 at 02:51; Status DC Naloxone HCl 0.1 mg AD PRN IVP; Start 09/11/25 at 02:00; Stop 09/11/25 at 02:51; Status DC Simethicone 80 mg TID PO Last administered on 09/11/25at 09:38; Start 09/11/25 at 09:00; Stop 10/11/25 at 08:59 Tramadol HCl 50 mg Q6H PRN PO; Start 09/11/25 at 03:30; Stop 09/16/25 at 03:29 MARNIE LATIF MD Sep 11, 2025 10:19
[2025-09-11] MEDS ORDERED: SIME80TA13 PO (11:42)
--- NOTE | 2025-09-11 12:22 | DS ---
Discharge Summary Hospital Course Summary: DATE OF ADMISSION:[09/10/25] DATE OF DISCHARGE:[09/11/25] DISPOSITION:[home] CONDITION:[stable] CONSULTANTS:[surgeon] FOLLOW UP APPOINTMENTS:[PCP in 2 to 3 days. surgeon in 10 days] PROCEDURES:[lap appy 09/10/25] IMAGING: report attached to summary MICROBIOLOGY: report attached to summary ACTIVITY:[indep] HOME MEDICATIONS: see med [facility] NEW MEDICATIONS:[tramadol 25mg Q8H prn #15 pills] EMERGENCY INSTRUCTIONS: The patient was instructed to present to the nearest Emergency departmentr or call 911 once their symptoms will return or worsen Weekday Babysitter(s): Patient is30 years old male who was newly diagnosed with diabetes and was put on metformin who came to ER with a complains of right lower quadrant pain. CT abdomen/pelvis was performed and showed acute appendicitis. Surgeon was consulted and on 09/10/2025 lap appendectomy was performed by Dr. Drake. Patient was already placed on diet and was tolerating well. As per surgeon patient is cleared to be discharged home after a dose of Zosyn at 2:00 p.m. we will be administered. Patient also receive a written prescription for [id number] mg q.8 hours15 pills total. As per surgeon no antibiotics outpatient needed. Patient was advised to follow up with PCP in2 to 3 days and surgeon within 10 days. Procedure(s): REVIEW OF SYSTEMS CONSTITUTIONAL: Denies fevers, chills, or night sweats. No unintentional weight loss reported. NEUROLOGICAL: Denies headache, amaurosis fugax, motor weakness, sensory deficit, vertigo/spinning sensation, gait abnormalities, or tremors. ENT: No hearing loss, otalgia, otorrhea, rhinitis, rhinorrhea, hoarseness, or sore throat. CARDIOVASCULAR: Denies any exertional angina, dyspnea on exertion, orthopnea, paroxysmal nocturnal dyspnea, palpitations, life-threatening arrhythmias, claudication. PULMONARY: Denies any shortness of breath, cough, phlegm/sputum, hemoptysis, pleuritic chest pain. SLEEP: Denies morning headaches, daytime somnolence or napping. Denies difficulty falling asleep, staying asleep, waking from sleep. Denies knowledge of snoring. GASTROINTESTINAL: Denies any abdominal pain and nausea Denies any type of d ysphagia to either liquids or solids. Denies vomiting, pyrosis, early satiety, diarrhea, constipation, or changes in stool consistency or caliber. Denies coffee-ground emesis, hematemesis, hematochezia, or melanotic stools. GENITOURINARY: Denies frequency, urgency, nocturia, hematuria or incontinence (Storage/Irritative symptoms.) Low urinary stream, straining to void, urinary intermittency or hesitancy, splitting of the voiding stream, terminal dribbling. ENDOCRINOLOGIC: Denies polyuria, polydipsia, polyphagia or heat/cold intolerances. HEMATOLOGIC: Denies thrombophilia/previous clots, or coagulopathy/bleeding disorders. ONCOLOGIC: Denies personal history of malignancy. DERMATOLOGIC: Denies rashes or pruritus. PSYCHIATRIC: Denies any suicidal or homicidal ideation. Denies hallucinations. Assessment/Plan: ASSESSMENT: Acute appendicitis POA s/p lap appendecomy Acute leukocytosis POA Hyponatremia POA Uncontrolled diabetes POA Morbid obesity POA Discharge Instructions: ATTESTATION BY PHYSICIAN I have seen and examined the patient. I reviewed the documentation, medical decision making, and treatment plan as noted by the mid-level provider above. I agree with the findings and plan of care. Jose CARRASQUILLO Time spent arranging discharge: 31-60 minutes ATTESTATION BY PHYSICIAN I have seen and examined the patient. I reviewed the documentation, medical decision making, and treatment plan as noted by the mid-level provider above. I agree with the findings and plan of care. ROGER Sotomayor MD [facility] Sep 11, 2025 12:22
--- NOTE | 2025-09-11 18:26 | NUR ---
GAVE PATIENT DISCHARGE INSTRUCTIONS AND WRITTEN PRESCRIPTION. REMOVED IV WITH CATHETER INTACT. PATIENT WAS TAKEN OUT VIA WHEELCHAIR TO A PRIVATE VEHICLE.
== END 2025-09-11 18:24 | disposition home or self-care (01) ==
LOC: EDH 15:33 → INTOOBSV 19:00 → EDHIP 19:00 → 1MS 21:19
PROVIDERS: ADMIT Internal Medicine; ATTEND Internal Medicine
DX: K35.80 Unspecified acute appendicitis (principal); K76.0 Fatty (change of) liver, not elsewhere classified; K40.20 Bilateral inguinal hernia, without obstruction or gangrene, not specified as recurrent; E87.1 Hypo-osmolality and hyponatremia; E11.65 Type 2 diabetes mellitus with hyperglycemia; E66.01 Morbid (severe) obesity due to excess calories; R11.0 Nausea; Z79.899 Other long term (current) drug therapy; Z98.890 Other specified postprocedural states
CPT/HCPCS: 36415; 74176; 80048; 80053; 82948; 83735; 85025; 85027; 88304; 96365; 96366; 96372; 96375; 99285; G0378; J0330; J0690; J1815; J1885; J2003; J2250; J2405; J2543; J2704; J3010; J3490; J7030; A4649; A4930; A6206; C1769; J0665; J1308